=== PATIENT | male | born 1965 ===

== ENCOUNTER 2018-03-31 01:07 | Emergency (ER) | payer MEDICARE, MEDICAID ==
[2018-03-31 01:42] VITALS: BP 133/79; PULSE 113; RESP 17; TEMP 98.2; O2SAT 96
[2018-03-31] MEDS ORDERED: Oxycodone/Acetaminophen 5/325 mg Tab PO STA (03:01)
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
--- NOTE | 2018-03-31 17:37 | RAD ---
Date of service: 03/31/2018 PROCEDURE: Bilateral ankles. HISTORY: pain COMPARISON: No prior studies available for comparison however correlation made with concurrent radiographs of both feet. TECHNIQUE: Three standard views of the right and left ankles performed. FINDINGS: The current study reveals a lucencies traversing the left anterior inferior and posterior margins of the left calcaneus. Findings may represent trabecular artifact however nondisplaced fractures cannot be completely excluded. Consider follow-up CT scan for further evaluation. The remaining osseous structures otherwise appear intact. Talar dome intact. Ankle mortise maintained. No significant soft tissue swelling. Note made of tiny tiny bilateral plantar and posterior calcaneal enthesophytes IMPRESSION: Questionable trabecular artifact versus nondisplaced fractures left calcaneus. Recommend follow-up CT scan of the left calcaneus. Preliminary findings provided by overnight radiology service
--- NOTE | 2018-03-31 17:39 | RAD ---
Date of service: 03/31/2018 PROCEDURE: Bilateral Feet Radiographs. HISTORY: Pain COMPARISON: None. FINDINGS: BONES: Right Foot: Possible fractures left calcaneus. Follow-up CT scan of the left foot recommended.. Small plantar and posterior surface calcaneal enthesophytes. Left Foot: Normal. No fracture. Small plantar and posterior surface calcaneal enthesophytes. JOINTS: Right Foot: Normal. No osteoarthritis. Left Foot: Normal. No osteoarthritis. SOFT TISSUES: Right Foot: Normal. Left Foot: Normal. OTHER FINDINGS: None. IMPRESSION: Possible fractures left calcaneus. Recommend follow-up CT scan of the left foot.
== END 2018-03-31 04:12 | disposition home or self-care (01) ==
LOC: H.ER 01:07
DX: S93.402A Sprain of unspecified ligament of left ankle, initial encounter (principal); S93.401A Sprain of unspecified ligament of right ankle, initial encounter; X50.9XXA Other and unspecified overexertion or strenuous movements or postures, initial encounter; Y92.008 Other place in unspecified non-institutional (private) residence as the place of occurrence of the external cause